=== PATIENT | male | born 1960 | race Caucasian/White ===

== ENCOUNTER → 2017-05-24 | Outpatient (CLI) | payer OTHER ==
[~2017-05-24] MED LIST: COLACE100 MG PO; GLUCOPHAGE1000 MG PO; IBUPROFEN800 MG PO; LOTENSIN20 MG PO; NORVASC5 MG PO; NUCYNTA100 MG PO; PERCOCET 5-3251 EACH PO
== END | disposition disaster alternative care site (69) ==
LOC: GRAD 11:59
DX: R10.31 Right lower quadrant pain (principal); N20.1 Calculus of ureter; N13.30 Unspecified hydronephrosis; K76.0 Fatty (change of) liver, not elsewhere classified
CPT/HCPCS: Q9967

== ENCOUNTER 2017-06-01 16:17 | Emergency (ER) | payer OTHER ==
--- NOTE | ~2017-06-01 | ER ---
PATIENT'S NAME: PAULINA LOCK [facility] AGE: 57 Y [address] ROOM: [place], [place] [address] LOCATION: [facility] ADMIT DATE: 06/01/2017 ER/Outpatient Report DISCHARGE DATE: 06/01/2017 FAMILY PHYSICIAN: Physician, Unknown ATTENDING PHYSICIAN: Rakan Ruiz Time of patient's arrival: 1617 hours. Time of patient's evaluation: 1617 hours. CHIEF COMPLAINT: Injury from fall off a ladder. HISTORY OF PRESENT ILLNESS: This is a 57-year-old male who presents to the ER who states he was up on a ladder. He was up approximately 10 feet when the ladder slipped out from underneath of him and he fell landing, injuring his left ribs and his left elbow. He states he feels like he jammed few of his fingers in his left and right hand. He states he did not hit his head. He denies any neck or back pain. He just states most of his pain is in his chest wall. The patient is up to date on all his immunizations. He denies any other injuries at this time. ALLERGIES: PENICILLIN. MEDICATIONS: Please see medication list in nurse's notes. PAST MEDICAL HISTORY: History of kidney stones. PAST SURGICAL HISTORY: He has had left shoulder surgery and carpal tunnel repair. SOCIAL HISTORY: Denies smoking, drug, or alcohol use. REVIEW OF SYSTEMS: All systems were reviewed and were negative with the exception of those discussed in the HPI. PHYSICAL EXAMINATION: VITAL SIGNS: Height 5 feet 8 inches, blood pressure is 183/102, pulse 82, respirations 20, temp 97.1 degrees tympanically, and saturations 93% on room air. Hiland Coma Score is 15. PATIENT'S NAME: PAULINA LOCK [facility] AGE: 57 Y [address] ROOM: [place], [place] [address] LOCATION: [facility] ADMIT DATE: 06/01/2017 ER/Outpatient Report DISCHARGE DATE: 06/01/2017 FAMILY PHYSICIAN: Physician, Unknown ATTENDING PHYSICIAN: Rakan Ruiz GENERAL: Alert, calm, well-developed, 57-year-old, in moderate distress. HEENT. Head: Normocephalic. Eyes, pupils are equal and reactive to light. Does display moist mucous membranes. LUNGS: Clear to auscultation bilaterally. No wheezes or crackles. HEART: Regular rate and rhythm. ABDOMEN: Soft, it is nontender. He has good bowel sounds throughout. MUSCULOSKELETAL: He does have significant pain with palpation over the left anterior and posterior rib cage. He also has tenderness in his left elbow with range of motion. He has some slight tenderness in his left shoulder. He states that this is probably due to the fact that he just had surgery on his shoulder. He has no tenderness across his clavicle. The patient does have tenderness to his right thumb and his left middle finger with palpation. No ecchymosis or erythema was seen there. SKIN: He has abrasions noted to his left rib cage. He had abrasions to his elbow as well. LABORATORY DATA: None were done. Chest x-ray and left rib detail does show rib fractures in 6, 7, and 8. No pneumothorax was seen. We did x-ray his left elbow, left hand, and right hand. He does have a small chip fracture without displacement to the tip of the chronic process. No joint effusion seen. X-rays of the left hand and right hand showed no obvious fracture. We did do a CT scan of his chest and does confirm that he has anterior and posterior rib fractures of his 6th, 7th, and 8th ribs on the left side. There is no underlying lung abnormality and this was reviewed by Radiology. He also has a right renal pelvis stone that is nonobstructing. IMPRESSION: 1. Sixth, seventh, and eighth rib fractures on the left. 2. Chip fracture to the left elbow. 3. Left shoulder tenderness. 4. Abrasions to left chest wall and left elbow. 5. Right thumb and left middle finger injuries from fall. ASSESSMENT AND PLAN: We did start an IV here in the emergency room. He initially did not want anything for pain but then later in his stay, we did give him 50 mcg of fentanyl and we did repeat that one time. I did give the patient the option of staying in the hospital for pain control, but he would like to try to do this at home. We will dismiss him to home with a prescription for Percocet to use as directed. He needs to ice any sore areas. He needs to do deep breathing exercises. He may alternate pain medication as needed with ibuprofen and he states that he will use his arm sling that he already has at home for his elbow. I would like him to follow up with primary care physician PATIENT'S NAME: PAULINA LOCK [facility] AGE: 57 Y [address] ROOM: [place], [place] [address] LOCATION: [facility] ADMIT DATE: 06/01/2017 ER/Outpatient Report DISCHARGE DATE: 06/01/2017 FAMILY PHYSICIAN: Physician, Unknown ATTENDING PHYSICIAN: Rakan Ruiz in 3 days and he also needs a followup with his orthopedic doctor as well. He should return if any of his symptoms worsen. The patient understands. MANDO HDEZ PA-C FOR DO GARRICK DEVRIESJ/marshal /[id number] d: 06/02/17207 t: 06/09/172047, OUTPATIENT REPORT
== END 2017-06-01 18:06 | disposition disaster alternative care site (69) ==
LOC: GACC 16:17
DX: S22.42XA Multiple fractures of ribs, left side, initial encounter for closed fracture (principal); S52.042A Displaced fracture of coronoid process of left ulna, initial encounter for closed fracture; S20.312A Abrasion of left front wall of thorax, initial encounter; S69.92XA Unspecified injury of left wrist, hand and finger(s), initial encounter; S69.91XA Unspecified injury of right wrist, hand and finger(s), initial encounter; M25.512 Pain in left shoulder; Z88.0 Allergy status to penicillin; Z87.442 Personal history of urinary calculi; Z98.890 Other specified postprocedural states; W11.XXXA Fall on and from ladder, initial encounter
CPT/HCPCS: J3010

== ENCOUNTER 2017-06-04 14:50 | Inpatient (IN) | payer OTHER ==
[~2017-06-04] VITALS: Ht 167.6 cm; Wt 99.1 kg
--- NOTE | ~2017-06-04 | DS ---
PATIENT'S NAME: TA OROPEZA [facility] AGE: 57 Y [address] ROOM: [address] [address] LOCATION: [facility] ADMIT DATE: 06/04/2017 Discharge Summary DISCHARGE DATE: 06/07/2017 FAMILY PHYSICIAN: Mook Henriquez MD ATTENDING PHYSICIAN: Ten Morrow DIAGNOSES: 1. A 57-year-old male, who fell off a ladder on June 01, presenting with inadequate pain control. 2. Multiple left rib fractures. 3. Left coronoid process tip fracture with soft tissue injury left arm. 4. Nausea and vomiting. 5. Hypertension. SUMMARY: Ta Oropeza is a 57-year-old male, who was seen in the emergency room on June 01, 2017, after falling from a ladder. The patient was initially evaluated on June 01 in the ER and was discharged home with Percocet. The patient presented back on June 04 with inadequate pain control and the patient was subsequently admitted for pain control measures. A CT scan of the chest was done on June 01, which showed rib fractures 6, 7, and 8 anteriorly and laterally each fractured in 2 places. The chest x- ray was done on the day of admission which showed no pneumothorax or pulmonary contusion. Rib fractures were not appreciated on the chest x-ray. The patient was allowed regular diet. Activity as tolerated. Morphine and Percocet along with Motrin were ordered for pain. Dr. Henriquez, his family physician followed along and ordered Norvasc for hypertension. The patient did have some nausea and vomiting and his pain medication was switched to Nucynta 50 mg two tablets every 4 to 6 hours p.r.n. pain. On June 05, his pain was better controlled. He did remain on the liter of oxygen at that time. Pulmonary toiletry was encouraged. Lovenox was ordered for DVT prophylaxis, due to the nausea and vomiting, an abdominal x-ray was obtained which showed no evidence for ileus or bowel obstruction. There was concern for constipation and Dulcolax suppository was given. The patient improved over the next couple days with better pain control. Arrangements were made for the patient to discharge home on June 07. DISCHARGE INSTRUCTIONS: Include no restrictions on diet or activity. He will follow up with Dr. Henriquez in [address] Donohue, p.r.n. He is to see a physician for increased shortness of breath, chest pain or fever. DISCHARGE MEDICATIONS: 1. Norvasc 5 mg every day, dispensing 30 with no refills. 2. Colace 100 mg p.o. twice daily for constipation. 3. Motrin 800 mg every 8 hours as needed for pain, dispensing 20 with no refills. PATIENT'S NAME: TA OROPEZA [facility] AGE: 57 Y [address] ROOM: [place] [address] [facility] ADMIT DATE: 06/04/2017 Discharge Summary DISCHARGE DATE: 06/07/2017 FAMILY PHYSICIAN: Mook Henriquez MD ATTENDING PHYSICIAN: Ten Morrow 4. Nucynta 50 mg 1 to 2 p.o. q.4-6 hours p.r.n. pain, dispensing 40 with no refills. For specifics on day-to-day care please refer to the hospital chart. NATALIYA JERRY PA-C FOR MD DENISSE MUNIZ/ирина /[id number] d: 06/08/17 0257 t: 06/08/17 1125, DISCHARGE SUMMARY
--- NOTE | ~2017-06-04 | HP ---
PATIENT'S NAME: PAULINA LOCK [facility] AGE: 57 Y [address] ROOM: [place] [address] LOCATION: [facility] ADMIT DATE: 06/04/2017 History & Physical DISCHARGE DATE: FAMILY PHYSICIAN: Mook Henriquez MD ATTENDING PHYSICIAN: Ten RICHEY DATE OF SERVICE: 06/04/2017 PRESENT DIAGNOSES: 1. Multiple rib fractures at the 6th, 7th, and 8th ribs. 2. Flail chest. 3. Elbow fracture. 4. Chest wall pain secondary to rib fractures. HISTORY OF PRESENT ILLNESS: The patient is a 57-year-old male who was seen in the ED 3 days ago after falling from his ladder. The ladder was approximately 10 feet up. He was noted to have multiple rib fractures as well as the elbow fracture at that time. At that time, the patient was given the option of staying in the hospital for pain control, but he decided he would like to go home. Over the course of the ensuing 3 days, his pain has not been relieved and today appeared to have gotten worse and prompting his presentation to the emergency department. He is hemodynamically stable on presentation. ALLERGIES: PENICILLIN. PAST MEDICAL HISTORY: Significant for kidney stones. PAST SURGICAL HISTORY: Significant for arm, left shoulder surgery, and a carpal tunnel repair. SOCIAL HISTORY: He denies smoking, drugs, or alcohol use. REVIEW OF SYSTEMS: Negative other than what was noted in the H and P. PHYSICAL EXAMINATION: VITAL SIGNS: His blood pressure 229/112, heart rate of 73, respirations 20, and temperature is 98.1. GENERAL: A well-developed, well-nourished, mildly overweight male, in no acute distress, but having significant chest wall pain. LUNGS: Clear breath sounds bilaterally. PATIENT'S NAME: PAULINA LOCK [facility] AGE: 57 Y [address] ROOM: [address] [address] LOCATION: [facility] ADMIT DATE: 06/04/2017 History & Physical DISCHARGE DATE: FAMILY PHYSICIAN: Mook Henriquez MD ATTENDING PHYSICIAN: Ten RICHEY HEART: Regular rate and rhythm. ABDOMEN: Soft and nontender. EXTREMITIES: Warm. Pulses are intact. NEUROLOGIC: Sensory and motor are intact. DIAGNOSTIC DATA: Chest x-ray has not shown any evidence of significant contusions or infiltrate. CAT scan shows the multiple rib fractures of 6, 7, and 8, both anteriorly and posteriorly. No evidence of any pulmonary contusions or pneumothoraces or infiltrates. ASSESSMENT AND PLAN: This is a 57-year-old male, status post fall, resulting in multiple rib fractures and an elbow fracture. He presents back now because of uncontrolled pain. PLAN: Will be to admit to control pain. We will consider anesthesia pain consult as well. TEN RICHEY MD CC/modphil /[id number] D: T: HISTORY & PHYSICAL
--- NOTE | ~2017-06-04 | ER ---
PATIENT'S NAME: PAULINA OROPEZA [facility] AGE: 57 Y [address] ROOM: [place] [address] LOCATION: [facility] ADMIT DATE: 06/04/2017 ER/Outpatient Report DISCHARGE DATE: FAMILY PHYSICIAN: Mook Henriquez MD ATTENDING PHYSICIAN: Ten RICHEY CHIEF COMPLAINT: Left side pain. HISTORY OF PRESENT ILLNESS: Mr. Oropeza was seen in the emergency department on the evening of June 01. I found to have multiple left-sided rib fractures after fall from a ladder as well as shoulder pain and a coronoid process fracture to the left elbow. He opted not to be admitted and instead try home pain medication. His Percocet have not been helping and he has not had a bowel movement since before he fell. He denies any fevers, chills, or cough and he is otherwise feeling okay. No new injuries or falls. PAST MEDICAL HISTORY: Documented on the record and reviewed by me. SOCIAL HISTORY: Documented on the record and reviewed by me. MEDICATIONS: Documented on the record and reviewed by me. ALLERGIES: DOCUMENTED ON THE RECORD AND REVIEWED BY ME. REVIEW OF SYSTEMS: All systems were reviewed and negative except as noted in the HPI. PHYSICAL EXAMINATION: VITAL SIGNS: Blood pressure 229/112, pulse 73, respiratory rate is 20, temperature 98.1, SpO2 is 93% on room air. Pain is rated at 10/10. GENERAL: Age-appropriate male, in mild respiratory distress, in obvious severe pain holding his left chest wall. NEUROLOGIC: Awake and alert. GCS is 15. No obvious abnormalities. No asymmetry. HEENT: Normocephalic and atraumatic. Eyes are PERRL. Oropharynx is clear. NECK: Supple. Trachea is midline. HEART: Regular rate and rhythm with no obvious murmurs. LUNGS: With diminished respiratory capacity bilateral, slightly tachypneic. No extra breath sounds appreciated on exam. PATIENT'S NAME: PAULINA OROPEZA [facility] AGE: 57 Y [address] ROOM: [place] [address] LOCATION: [facility] ADMIT DATE: 06/04/2017 ER/Outpatient Report DISCHARGE DATE: FAMILY PHYSICIAN: Mook Henriquez MD ATTENDING PHYSICIAN: Ten RICHEY BACK: Normal to inspection and palpation. No CVA tenderness. Chest wall tenderness at the left lateral posterior chest wall. ABDOMEN: Distended and obese, but no focal tenderness. Resonant to percussion. No focal masses. No rebound or guarding. EXTREMITIES: Warm, well formed, and well perfused. There is some ecchymosis at the left elbow with some abrasions. No tenderness. No erythema outside if expected for history. SKIN: Appears to be grossly intact except as noted above. LABORATORIES AND X-RAYS: 1. Chest x-ray was obtained, with poor lung volume, oblique imaging, but consistent with possible atelectasis. 2. Basic labs are obtained and will be reviewed by the admitting team. IMPRESSION: Left flail chest with uncontrolled pain. EMERGENCY DEPARTMENT COURSE: The patient was seen and evaluated at bedside. IV was established. Morphine was given and the patient became hypoxic to the low 80s. No improvement in pain, but respirations slightly more shallow. The patient remained alert. Saturations improved with supplemental nasal oxygen. Based on this, I will not further treat his pain. Dr. Richey, trauma surgeon was consulted to evaluate the patient. He will be admitted to the intermediate ICU for further evaluation and treatment of his uncontrolled pain related to flail chest. I did review the records from his most recent CT scan of the chest and there are notable for flail chest with two fractures in each of left rib 6, 7, and 8 per results. All questions were answered. The patient was taken to the intermediate ICU for further evaluation and treatment as noted above. MD TATIANA EDGE/ирина /[id number] d: 06/04/179 t: 06/13/17 1046, OUTPATIENT REPORT
[2017-06-04 16:31] LABS: BASOPHIL # 0.1 K/uL (0.0-0.2); BASOPHIL % 0.8 %; EOSINOPHIL # 0.1 K/uL (0.0-0.5); EOSINOPHIL % 1.1 %; HEMATOCRIT 42.1 % (37.0-53.0); HEMOGLOBIN 14.2 g/dL (12.0-17.0); IMMATURE GRANULOCYTE # 0.1 K/uL (0.0-0.3); IMMATURE GRANULOCYTE % 0.6 %; LYMPHOCYTE # 1.9 K/uL (0.8-4.0); LYMPHOCYTE % 15.6 %; MCH 32.6 pg (27.0-34.0); MCHC 33.7 gm/dL (32.0-36.5); MCV 96.6 fl (83.0-98.0); MONOCYTE % 8.1 %; MPV 13.1 fl (9.4-12.4); NEUTROPHIL # (ANC) 8.8 K/uL (1.4-9.0); NEUTROPHIL % 73.8 %; NRBC % 0 /100WBC (0-0.00); PLATELET COUNT 169 K/uL (150-450); RBC 4.36 M/uL (4.00-6.00); RDW-CV 11.9 % (11.9-14.6); WBC 11.9 K/uL (4.0-11.0)
[2017-06-04 16:38] LABS: INR - (THERAPEUTIC) 1.02 (0.92-1.07); PROTIME 10.7 SECONDS (9.8-11.4); PTT 26 SECONDS (25-32)
[2017-06-04 16:46] LABS: ALBUMIN 3.7 gm/dL (3.5-5.0); ALK PHOS 61 IU/L (33-138); ALT 57 IU/L (12-78); ANION GAP 12.1 (10.0-19.0); AST 33 IU/L (10-40); BLOOD UREA NITROGEN 12 mg/dL (6-24); CALCIUM 8.9 mg/dL (8.5-10.5); CHLORIDE 104 mMol/L (96-110); CO2 25 mMol/L (22-32); CREATININE 0.9 mg/dL (0.6-1.3); POTASSIUM 4.1 mMol/L (3.7-5.1); SODIUM 137 mMol/L (135-145); TOTAL BILIRUBIN 0.7 mg/dL (0.0-1.5); TOTAL PROTEIN 7.9 g/dL (6.0-8.4)
--- NOTE | 2017-06-04 19:38 | NUR ---
Patient admitted to Intermediate care at around 1710 after falling from a ladder a few days ago and breaking his left elbow and left ribs 5-8. Patient states he has had troubles getting around due to pain and has not had a bowel movement. Vital signs stable on 2L via nasal cannula. IV saline locked with no complications to right hand. Pleasant and cooperative with cares.
--- NOTE | 2017-06-04 19:44 | NUR ---
Significant Event: Patient alert and oriented. Vital signs stable on 2L via nasal cannula. Given percocet for pain with some relief noted, patient able to rest. IV saline locked with no complications. Has rested well since being here. Pleasant with cares. Follow up: MED RECON WITH [employer] TECH.
--- NOTE | 2017-06-05 04:26 | NUR ---
Significant Event: AOx3. VSS on 1L/NC. Bowel sounds active, patient states he is passing gas. No void this shift. No new or worsening skin issues. Afebrile. Pain better controlled. Heat k-pad to L)ribs for pain. Follow up: Discharge? Continue with pain management.
[2017-06-05] MEDS ORDERED: PERCOCET 5-3251 EACH PO (09:33)
--- NOTE | 2017-06-05 13:38 | NUR ---
INtroduced self and role of care management to pt. He lives in [place] and works for the [employer] but off for his shoulder. He lives with his mother and helps care for her. At this time plans on home when ready. WIll continue to follow.
--- NOTE | 2017-06-05 17:46 | NUR ---
Significant Event: Alert and oriented X 3. O2 at 0.5L to keep O2 above 90. SBP range from 160's to 210's. Norvasc ordered for Q day, first dose was given at 1219. Dilaudid given X 1 for pain at 0902. Patient nauseated with 300 ml emesis this shift. Zofran given at 1218 with relief noted. Complaints of spasms with valium 5 mg given at 1530, patient has been sleeping. Up with 1 assist and gait belt. Voided X 1 with tinge of blood noted. Normal saline infusing in right hand at 75 ml/hr. Pleasant and cooperative with cares. Follow up:
--- NOTE | 2017-06-06 05:11 | NUR ---
Significant Event: A/O x3, NO N/T. ONE ASSIST, GAITBELT. R) HAND IV, RUNNING NS AT 75/HR. NSR. SOME BRUISING TO L) SIDE OF BODY FROM FALL. CHRONIC PAIN TO INJURED SIDE, ARM, RIBS, BACK. ON 0.5 L O2. GAVE SUPPOSITORY AT 2155. PATIENT HAD BM AT 0030. GIVEN NUCYNTA X2 TONIGHT FOR SEVERE PAIN. Follow up:
[2017-06-06 05:25] LABS: BASOPHIL # 0.1 K/uL (0.0-0.2); BASOPHIL % 0.5 %; EOSINOPHIL # 0.2 K/uL (0.0-0.5); EOSINOPHIL % 1.3 %; HEMATOCRIT 38.7 % (37.0-53.0); HEMOGLOBIN 13.2 g/dL (12.0-17.0); IMMATURE GRANULOCYTE # 0.1 K/uL (0.0-0.3); IMMATURE GRANULOCYTE % 0.5 %; LYMPHOCYTE # 1.9 K/uL (0.8-4.0); LYMPHOCYTE % 14.1 %; MCH 32.9 pg (27.0-34.0); MCHC 34.1 gm/dL (32.0-36.5); MCV 96.5 fl (83.0-98.0); MONOCYTE # 1.1 K/uL (0.0-1.0); MONOCYTE % 8.1 %; NEUTROPHIL # (ANC) 10.4 K/uL (1.4-9.0); NEUTROPHIL % 75.5 %; NRBC % 0 /100WBC (0-0.00); PLATELET COUNT 156 K/uL (150-450); RBC 4.01 M/uL (4.00-6.00); WBC 13.8 K/uL (4.0-11.0)
[2017-06-06 05:40] LABS: ANION GAP 10.1 (10.0-19.0); BLOOD UREA NITROGEN 10 mg/dL (6-24); CALCIUM 8.3 mg/dL (8.5-10.5); CHLORIDE 103 mMol/L (96-110); CO2 28 mMol/L (22-32); CREATININE 0.7 mg/dL (0.6-1.3); PHOSPHORUS 2.6 mg/dL (2.5-4.9); POTASSIUM 4.1 mMol/L (3.7-5.1); SODIUM 137 mMol/L (135-145)
--- NOTE | 2017-06-06 16:18 | NUR ---
Significant Event: Alert and oriented X 3. O2 at 0.5 L. SBP 170's 140's and 118. HR 60's, 70's and 80's. Up with 1 assist and gait belt. Order to walk 4X per day. Moderate loose bowel movement this shift. Peripheral IV right hand, flushes well and saline locked. Large bruise to upper posterior arm. Hardened area noted within bruising. Area is not hot or reddened. Nucynta given at 0838 for pain. Refused pain medication remainder of shift, rates pain at a 3-4 which is tolerable for him. Patient is also using a heating pad to left side. Pleasant and cooperative with cares. Follow up:
--- NOTE | 2017-06-07 04:35 | NUR ---
Significant Event: A/O x3, NO N/T. SBA. NSR, 2+ PULSES, 1+ EDEMA. 0.5L O2 VIA NC. R) HAND IV, SALINE LOCKED, NO COMPLICATIONS. RECEIVED NUCYNTA FOR PAIN. SCABBING TO L) ARM OPEN TO AIR, BRUISING ON L) SIDE OF BODY FROM FALL. LUMP UNDER L) ARM. Follow up:
[2017-06-07] MEDS ORDERED: NORVASC5 MG PO (09:20)
[2017-06-07] MEDS ORDERED: COLACE100 MG PO (09:21)
[2017-06-07] MEDS ORDERED: IBUPROFEN800 MG PO (09:34)
[2017-06-07] MEDS ORDERED: NUCYNTA100 MG PO (09:35)
[2017-06-07] MEDS ORDERED: GLUCOPHAGE1000 MG PO (09:51)
[2017-06-07] MEDS ORDERED: LOTENSIN20 MG PO (09:53)
--- NOTE | 2017-06-07 12:43 | NUR ---
Diabetes education provided: Consult received stating patient is newly diagnosed. Education provided as per Diabetes Survivial skills checklist and a copy is provided to patient. Patient states he has been "borderline" for a while, blood sugars in 140 currently here, has been under some stress with rotator cuff surgery a year ago, has not been able to work and recently file bankruptcy. [employer] Verio meter provided and scripts written on chart of supplies, demonstrated use and patient does return demo x1, log book provided to record all results and instructed him to take to [facility] at [facility], as per Dr. Henriquez. Basic meal plan education provided and encouraged to schedule appointment with the RD here at [facility] for on-going support and education, but patient refused this service at this time. Phone number provided to schedule this in the near future. Patient states he know "alot about Diabetes", his mother has diabetes and she tests her blood sugars, and she lives with patient. Written materials provided, Survivial Skills checklist completed. A1C 7.3 % on 06/06/17 Answered all questions and agrees to call if questions or concerns, plans for dismissal later this afternoon.
== END 2017-06-07 15:00 | disposition disaster alternative care site (69) | DRG 184 ==
LOC: GMED 14:50 → GPCU 16:15 → GICU 16:15 → GPCU 06-05 07:18
PROVIDERS: Emergency Medicine; Physician Assistant; ADMIT Surgery
DX: S22.42XA Multiple fractures of ribs, left side, initial encounter for closed fracture (principal); S42.402A Unspecified fracture of lower end of left humerus, initial encounter for closed fracture; I10 Essential (primary) hypertension; E11.9 Type 2 diabetes mellitus without complications; W11.XXXA Fall on and from ladder, initial encounter; S42.132A Displaced fracture of coracoid process, left shoulder, initial encounter for closed fracture; R11.2 Nausea with vomiting, unspecified; K59.00 Constipation, unspecified
CPT/HCPCS: J1170; J1650; J2270; J2405; J7030